=== PATIENT | male | born 1955 | race Caucasian/White ===

== ENCOUNTER 2024-06-02 06:57 | Day surgery (SDC) | payer MEDICARE ==
[~2024-06-02] VITALS: Ht 180.3 cm; Wt 81.6 kg
[~2024-06-02 06:57] MED LIST: ABILIFY10 MG PO; AMOX/K CLAV875 M1 PO; ASPIRIN 81 LOW81 MG; BACTRIM DS1 TAB PO; BERBERINE PO; COQ-1030 M1 PO; COZAAR25 MG PO; CRESTOR10 MG PO; MENS PO; MULTIV PO; ONDANSETRON4 MG PO; TOTAL BEETS PO
[2024-06-02] MEDS ORDERED: FAMOTIDINE 10MG/ML 2ML SDV IV ONE (07:02)
[2024-06-02] MEDS ORDERED: LACTATED RINGER'S 1,000 ML IV ONE (07:02)
[2024-06-02 09:18] VITALS: BP 140/87
[2024-06-02] MEDS ORDERED: GLYCOPYRROLATE 0.2 MG/ML IV ONE (14:12)
[2024-06-02] MEDS ORDERED: LIDOCAINE HCL 2% 2ML SDV IV ONE (14:12)
[2024-06-02] MEDS ORDERED: PROPOFOL 200 MG/20 ML VIAL IV ONE (14:12)
== END 2024-06-02 07:34 | disposition home or self-care (01) ==
LOC: ENDO 06:57
PROVIDERS: ATTEND Surgery
PROC: 0DJD8ZZ Inspection of Lower Intestinal Tract, Via Natural or Artificial Opening Endoscopic (ICD-10-PCS; principal; 2024-06-02)
DX: Z12.11 Encounter for screening for malignant neoplasm of colon (principal); K57.30 Diverticulosis of large intestine without perforation or abscess without bleeding; K64.8 Other hemorrhoids; I10 Essential (primary) hypertension; E78.5 Hyperlipidemia, unspecified; Z86.718 Personal history of other venous thrombosis and embolism; Z86.711 Personal history of pulmonary embolism; Z80.0 Family history of malignant neoplasm of digestive organs; Z86.0100 Personal history of colon polyps, unspecified